=== PATIENT | male | born 1970 | race Caucasian/White ===

== ENCOUNTER 2021-07-08 07:53 | Outpatient (CLI) | payer OTHER ==
[2021-07-08] MEDS ORDERED: Iopamidol 370 76% 100 ML VIAL ONE (09:36)
== END 2021-07-08 07:54 | disposition home or self-care (01) ==
LOC: CT 07:53
PROVIDERS: ATTEND Student in an Organized Health Care Education/Training Program
DX: R10.31 Right lower quadrant pain (principal); N13.30 Unspecified hydronephrosis; K57.30 Diverticulosis of large intestine without perforation or abscess without bleeding; K59.00 Constipation, unspecified; N32.89 Other specified disorders of bladder
CPT/HCPCS: 74177; Q9967

== ENCOUNTER 2021-10-05 09:27 | Outpatient (CLI) | payer BC ==
[2021-10-05 10:22] LABS: Hemoglobin 14.6 g/dL (13.5-17.5); Mean Corpuscular HGB CONC 33.5 g/dL (32.0-36.0); Mean Corpuscular Hemoglobin 30.2 pg (27.0-33.0); Mean Corpuscular Volume 90.1 fl (81.2-95.1); Platelet Count 275 10x3/uL (150-450); Red Blood Cell (RBC) Count 4.84 10x6/uL (4.32-5.72); White Blood Cell (WBC) Count 4.3 10x3/uL (3.5-10.5)
[2021-10-05 10:26] LABS: Bilirubin Neg (Negative); Blood, Urine 10 (Negative); Clarity Clear (Clear); Glucose, Urine (Dipstick) Normal (Negative); Ketone, Urine Negative (Negative); Leukocyte Negative (Negative); Nitrite Negative (Negative); Protein, Urine (Dipstick) Negative (Neg-Trace); Urobilinogen Normal mg/dL (Less than 2)
[2021-10-05 10:38] LABS: PTT 29.1 sec (22.0-33.0); Prothrombin Time 11.3 sec (9.5-12.1)
[2021-10-05 10:54] LABS: Bacteria/HPF None Seen HPF (None Seen); RBC/HPF 0-3 HPF (0-3); Squamous Epithelial 0-3 HPF (0-3); WBC/HPF 0-3 HPF (0-3)
[2021-10-05 11:03] LABS: Anion Gap 11 mmol/L (10-20); BUN (Urea Nitrogen) 12 mg/dL (8.9-20.6); Calc. Creatinine Clearance 0 mL/min (70-130); Calcium 9.2 mg/dL (7.8-10.44); Carbon Dioxide 29 mmol/L (22-29); Chloride 103 mmol/L (98-107); Glucose 109 mg/dL (70-105); Sodium 139 mmol/L (136-145)
[2021-10-05 20:04] LABS: SARS-CoV-2 PCR by NAA Not Detected (NotDetected)
== END 2021-10-05 09:28 | disposition home or self-care (01) ==
LOC: LABBT 09:27
PROVIDERS: ATTEND Urology
DX: Z01.812 Encounter for preprocedural laboratory examination (principal); N28.89 Other specified disorders of kidney and ureter; Z20.822 Contact with and (suspected) exposure to COVID-19
CPT/HCPCS: 80048; 81001; 85027; 85610; 85730; 87086; U0003; U0005

== ENCOUNTER 2021-10-08 09:31 | Day surgery (SDC) | payer BC ==
[2021-10-07 10:26] VITALS: BMI 29.1
[2021-10-08] MEDS ORDERED: B & O ONE (12:28)
[2021-10-08] MEDS ORDERED: Levofloxacin 500 mg/D5W 100 ml Premix Bag ONE (12:43)
[2021-10-08] MEDS ORDERED: fentaNYL Citrate/PF 100 MCG/2 ML SYRINGE ONE (12:44)
[2021-10-08] MEDS ORDERED: Oxybutynin 5 MG TAB ONE (14:06)
[2021-10-08] MEDS ORDERED: Phenazopyridine HCl 100 MG TAB ONE (14:06)
== END 2021-10-08 14:45 | disposition home or self-care (01) ==
LOC: SDC 09:31
PROVIDERS: ATTEND Urology
PROC: 0T5D8ZZ Destruction of Urethra, Via Natural or Artificial Opening Endoscopic (ICD-10-PCS; principal; 2021-10-08)
DX: N28.89 Other specified disorders of kidney and ureter (principal); N13.30 Unspecified hydronephrosis; Z88.2 Allergy status to sulfonamides; Z91.041 Radiographic dye allergy status
CPT/HCPCS: J1956

== ENCOUNTER 2021-10-26 14:22 | Outpatient (CLI) | payer BC | END 2021-10-26 14:23 | disposition home or self-care (01) | LOC: LABBT 14:22 | PROVIDERS: ATTEND Orthopaedic Surgery | DX: M19.012 Primary osteoarthritis, left shoulder (principal); Z20.822 Contact with and (suspected) exposure to COVID-19 | CPT/HCPCS: U0003; U0005 ==

== ENCOUNTER 2021-10-29 06:57 | Day surgery (SDC) | payer BC ==
[2021-10-27 14:14] VITALS: BMI 29.1
[2021-10-29] MEDS ORDERED: Vancomycin (BATCH) 1.5 GRAM/300 ML BAG ONE (07:13)
[2021-10-29] MEDS ORDERED: Midazolam HCl 2 mg/2 ml Vial ONE (07:54)
[2021-10-29] MEDS ORDERED: Fentanyl 100 MCG/2 ML VIAL ONE (07:54)
[2021-10-29] MEDS ORDERED: CEFAZOLIN 2 GM VIAL ONE (08:51)
[2021-10-29] MEDS ORDERED: Sodium Chloride 0.9% 100 ML ONE ×2 (08:51→08:59)
[2021-10-29] MEDS ORDERED: Tranexamic Acid 1,000 MG/10 ML VIAL ONE (08:58)
[2021-10-29] MEDS ORDERED: fentaNYL Citrate/PF 100 MCG/2 ML SYRINGE ONE (09:12)
[2021-10-29] MEDS ORDERED: HYDROcodone/Acetaminophen 10/325 mg Tablet PO PRN ×2 (09:15)
[2021-10-29] MEDS ORDERED: Promethazine HCl 25 MG/ML VIAL IM PRN (09:15)
[2021-10-29] MEDS ORDERED: Ketorolac Tromethamine 30 MG/ML VIAL IVP PRN (09:15)
[2021-10-29] MEDS ORDERED: Zolpidem Tartrate 5 MG TAB PO PRN (09:15)
[2021-10-29] MEDS ORDERED: Ropivacaine 0.2% 550 ML 550 ML NERVE BLCK SCH (09:15)
[2021-10-29] MEDS ORDERED: Ondansetron PF 4 MG/2 ML Vial IVP PRN (09:15)
[2021-10-29] MEDS ORDERED: traMADol HCl 50 MG TAB PO PRN ×2 (09:15)
[2021-10-29] MEDS ORDERED: HYDROmorphone 2 MG/ML VIAL SLOW IVP PRN (10:46)
[2021-10-29] MEDS ORDERED: Promethazine HCl 25 MG/ML VIAL IVPB PRN (10:46)
[2021-10-29] MEDS ORDERED: Meperidine HCl/PF 25 MG/ML VIAL SLOW IVP PRN (10:46)
== END 2021-10-29 14:35 | disposition home or self-care (01) ==
LOC: SDC 06:57
PROVIDERS: ATTEND Orthopaedic Surgery
PROC: 3E0T3BZ Introduction of Anesthetic Agent into Peripheral Nerves and Plexi, Percutaneous Approach (ICD-10-PCS; principal; 2021-10-29)
PROC: 0LS40ZZ Reposition Left Upper Arm Tendon, Open Approach (ICD-10-PCS; principal; 2021-10-29)
PROC: 0RRK0JZ Replacement of Left Shoulder Joint with Synthetic Substitute, Open Approach (ICD-10-PCS; principal; 2021-10-29)
DX: M19.012 Primary osteoarthritis, left shoulder (principal); M75.21 Bicipital tendinitis, right shoulder; Z88.2 Allergy status to sulfonamides
CPT/HCPCS: A4306; C1713; C1776; C1889; J0690; J2250; J2795; J3010; J3370; J3490

== ENCOUNTER 2024-06-14 10:21 | Outpatient (CLI) | payer BC | END 2024-06-14 10:22 | disposition home or self-care (01) | LOC: SCSMRI 10:21 | PROVIDERS: ATTEND Orthopaedic Surgery | DX: S86.312A Strain of muscle(s) and tendon(s) of peroneal muscle group at lower leg level, left leg, initial encounter (principal) ==

== ENCOUNTER 2024-12-13 12:56 | Outpatient (CLI) | payer BC | END 2024-12-13 12:57 | disposition home or self-care (01) | LOC: SCSRAD 12:56 | PROVIDERS: ATTEND Nurse Practitioner Family | DX: R09.89 Other specified symptoms and signs involving the circulatory and respiratory systems (principal) | CPT/HCPCS: 71046 ==

== ENCOUNTER 2024-12-24 11:39 | Outpatient (CLI) | payer BC | END 2024-12-24 11:40 | disposition home or self-care (01) | LOC: SCSRAD 11:39 | PROVIDERS: ATTEND Family Medicine | DX: R05.3 Chronic cough (principal) | CPT/HCPCS: 71046 ==